=== PATIENT | female | born 1945 | race Asian ===

== ENCOUNTER 2017-03-18 13:32 | Outpatient (CLI) | payer MEDICARE, OTHER ==
--- NOTE | 2017-03-21 13:04 | Mammography Report ---
DIGITAL SCREENING MAMMOGRAM: 03/18/2017 CLINICAL INDICATION: A 71-year-old for screening. COMPARISON: 02/2016, 01/2015, 10/2013 TECHNIQUE: Routine CC and MLO projections were obtained of the breasts. FINDINGS: Scattered fibroglandular tissue is present within the breasts. There are no dominant nathan s, suspicious microcalcifications, or secondary signs of malignancy. In comparison to the previous st udies, there are no significant changes. ASSESSMENT: NO MAMMOGRAPHIC EVIDENCE OF MALIGNANCY. NO SIGNIFICANT INTERVAL CHANGES. RECOMMENDATION: Screening mammography is recommended annually. BIRADS category 1 - negative. STANDARD QUALIFYING STATEMENTS 1. This examination was reviewed with the aid of Computed-Aided Detection (CAD). 2. A negative or benign imaging report should not delay biopsy if clinically suspicious findings are present. Consider surgical consultation if warranted. More than 5% of cancers are not identified by i maging. 3. Dense breasts may obscure an underlying neoplasm. JOB #: [id number] EXT JOB #:[id number]
== END 2017-03-18 13:33 | disposition home or self-care (01) ==
LOC: DI.N 13:32
PROVIDERS: ATTEND Family Medicine
DX: Z12.31 Encounter for screening mammogram for malignant neoplasm of breast (principal)
CPT/HCPCS: 77067

== ENCOUNTER 2017-05-13 10:49 | Outpatient (CLI) | payer MEDICARE, OTHER ==
--- NOTE | 2017-05-13 13:25 | DEXA Report ---
DEXA SCAN: 05/13/2017 CLINICAL INDICATION: Osteoporosis. TECHNIQUE: Dual energy x-ray absorptiometry (DXA) was performed on a [employer] system. Regions measured are the AP spine, femoral neck, and, if needed, forearm. COMPARISON: None. In accordance with the International Society for Clinical Densitometry (ISCD) guidelines, data from previous exams may be reanalyzed using current recommendations and techniques. This is done to allow a more accurate basis for comparison with the current study. FINDINGS: The data for the lumbar spine is as follows: REGION BMD (g/cm/cm) T-SCORE Z-SCORE L1 0.729 -3.3 -1.4 L2 0.745 -3.8 -1.9 L3 0.724 -4.0 -2.0 L4 0.804 -3.3 -1.4 TOTAL 0.754 -3.6 -1.6 NOTE: All evaluable vertebrae are used for classification. The data for the hip is as follows: REGION BMD (g/cm/cm) T-SCORE Z-SCORE Neck 0.697 -2.5 -0.6 TOTAL 0.758 -2.0 -0.3 NOTE: The femoral neck or total proximal femur, whichever is lowest, is used for classification. IMPRESSION: THE WHO CLASSIFICATION BASED ON THE INTERNATIONAL REFERENCE STANDARD IS OSTEOPOROSIS. THE FRACTURE RISK IS HIGH. RECOMMENDATION: Patients with diagnosis of osteoporosis or osteopenia should have regular bone mineral density assessment. For those eligible for Medicare, routine testing is allowed once every 2 years. Testing frequency can be increased for patients who have rapidly progressing disease or for those who are receiving medical therapy to restore bone mass. COMMENT: World Health Organization (WHO) definitions for osteoporosis and osteopenia: NORMAL BMD: T-score at -1.0 or higher, fracture risk is low. OSTEOPENIA BMD: T-score between -1.0 and -2.5, fracture risk is increased. OSTEOPOROSIS BMD: T-score at -2.5 or lower, fracture risk high. National Osteoporosis Foundation recommends: 1. Obtain adequate dietary calcium (at least 1200 mg per day) and vitamin D (400 -800 international units per day). 2. Participate, as appropriate, in regular weightbearing and muscle- strengthening exercise. 3. Avoid tobacco use and reduce alcohol and caffeine intake. 4. For more detailed information see the website at www.NOF.org. MTDD
== END 2017-05-13 10:50 | disposition home or self-care (01) ==
LOC: DI 10:49
PROVIDERS: ATTEND Family Medicine
DX: M81.0 Age-related osteoporosis without current pathological fracture (principal)
CPT/HCPCS: 77080

== ENCOUNTER 2018-03-13 14:47 | Outpatient (CLI) | payer MEDICARE, OTHER ==
--- NOTE | 2018-03-15 11:08 | Mammography Report ---
DIGITAL SCREENING MAMMOGRAM: 03/13/2018 TECHNIQUE: Bilateral digital CC and MLO projections. COMPARISON: 03/18/2017, 03/01/2016, 02/05/2015, 11/02/2013 and 12/16/2011. FINDINGS: There are scattered fibroglandular densities. There is no dominant mass, architectural distortion, skin thickening, suspicious microcalcifications or interval change. IMPRESSION: NEGATIVE. BI-RADS CATEGORY 1 - NEGATIVE. SUGGEST RETURN TO ROUTINE SCREENING IN 12 MONTHS. STANDARD QUALIFYING STATEMENTS: 1. This examination was reviewed with the aid of Computer-Aided Detection (CAD). 2. A negative or benign imaging report should not delay biopsy if clinically suspicious findings are present. Consider surgical consultation if warranted. More than 5% of cancers are not identified by imaging. 3. Dense breasts may obscure an underlying neoplasm. TD: 03/15/2018 10:53
== END 2018-03-13 14:48 | disposition home or self-care (01) ==
LOC: DI.N 14:47
PROVIDERS: ATTEND Family Medicine
DX: Z12.31 Encounter for screening mammogram for malignant neoplasm of breast (principal)
CPT/HCPCS: 77067

== ENCOUNTER 2018-04-21 11:13 | Outpatient (CLI) | payer MEDICARE, OTHER ==
[2018-04-21 19:12] LABS: BASOPHILS # (AUTO) 0.1 10^3/uL (0.0-0.1); BASOPHILS % (AUTO) 0.8 %; BILIRUBIN,URINE NEGATIVE (NEGATIVE); EOSINOPHILS # (AUTO) 0.1 10^3/uL (0.0-0.7); EOSINOPHILS % (AUTO) 1.5 %; GLUCOSE, URINE (UA) 100 mg/dL (NEGATIVE); HGB - HEMOGLOBIN 13.4 g/dL (12.0-16.0); KETONES,URINE (UA) NEGATIVE (NEGATIVE); LEUKOCYTE ESTERASE, URINE NEGATIVE (NEGATIVE); LYMPHOCYTES # (AUTO) 1.5 10^3/uL (1.5-3.5); LYMPHOCYTES % (AUTO) 24.9 %; MEAN CORPUSCULAR HEMOGLOBIN 29.6 pg (27.0-31.0); MEAN CORPUSCULAR HGB CONC 32.5 g/dL (32.0-36.0); MEAN CORPUSCULAR VOLUME 91.1 fL (81.0-99.0); MEAN PLATELET VOLUME 8.1 fL (7.9-10.8); MONOCYTES # (AUTO) 0.5 10^3/uL (0.0-1.0); MONOCYTES % (AUTO) 7.4 %; NEUTROPHILS % (AUTO) 65.4 %; NITRITE,URINE NEGATIVE (NEGATIVE); OCCULT BLOOD,URINE TRACE-LYSE (NEGATIVE); PLT - PLATELET COUNT 238 10^3/uL (130-450); PROTEIN,URINE NEGATIVE (NEGATIVE); RED BLOOD COUNT 4.52 10^6/uL (4.20-5.40); RED CELL DISTRIBUTION WIDTH 13.4 % (12.0-15.0); UROBILINOGEN,URINE 0.2 (NORMAL) E.U./dL (NORMAL); WHITE BLOOD COUNT 6.1 x10^3/uL (4.8-10.8)
[2018-04-21 19:16] LABS: CLARITY,URINE CLEAR (CLEAR)
[2018-04-21 19:42] LABS: ALBUMIN 3.7 g/dL (3.2-5.5); ALBUMIN/GLOBULIN RATIO 1.1 (1.0-2.2); ALKALINE PHOSPHATASE 59 IU/L (42-121); ALT ALANINE AMINOTRANSFERASE 17 IU/L (10-60); AST ASPARTATE AMINOTRANSFERASE 19 IU/L (10-42); BILIRUBIN,TOTAL 0.7 mg/dL (0.2-1.0); BUN - BLOOD UREA NITROGEN 13 mg/dL (6-20); CALCIUM 8.9 mg/dL (8.5-10.3); CARBON DIOXIDE - CO2 26 mmol/L (21-32); CHLORIDE 102 mmol/L (101-111); CHOL/HDL RATIO 2.7 (<4.4); CHOLESTEROL 246 mg/dL; CREATININE 0.4 mg/dL (0.4-1.0); GFR - MDRD 157 (>89); GLUCOSE 160 mg/dL (70-100); HDL CHOLESTEROL 91 mg/dL; LDL CHOLESTEROL,CALCULATED 131 mg/dL; LDL/HDL RATIO 1.4 (<4.4); SODIUM 135 mmol/L (135-145); TOTAL PROTEIN 7.2 g/dL (6.7-8.2); VLDL CHOLESTEROL 24 mg/dL
[2018-04-21 20:08] LABS: RBC,URINE None Seen /HPF (0-5)
[2018-04-21 20:09] LABS: BACTERIA,URINE None Seen /HPF (None Seen); SQUAMOUS EPITHELIAL CELL,UR NONE SEEN (<= Few)
[2018-04-21 20:10] LABS: CRYSTALS,URINE 11-25 Ca Oxalate /LPF
== END 2018-04-21 11:14 | disposition home or self-care (01) ==
LOC: LAB.WCP 11:13
PROVIDERS: ATTEND Family Medicine
DX: I10 Essential (primary) hypertension (principal); R35.0 Frequency of micturition
CPT/HCPCS: 36415; 80053; 80061; 81001; 83721; 85025; 87086

== ENCOUNTER 2018-06-06 11:02 | Outpatient (CLI) | payer MEDICARE, OTHER | END 2018-06-06 11:03 | disposition home or self-care (01) | LOC: RT 11:02 | PROVIDERS: ATTEND Internal Medicine Gastroenterology | DX: I10 Essential (primary) hypertension (principal) | CPT/HCPCS: 93005 ==

== ENCOUNTER 2018-06-29 09:39 | Day surgery (SDC) | payer MEDICARE ==
[~2018-06-29 09:39] MED LIST: LACTATED RINGERS 1,000 ML IV ONE
[2018-06-29] MEDS ORDERED: MIDAZOLAM 2 MG/2 ML VIAL IVP ONE (10:52)
[2018-06-29] MEDS ORDERED: fentaNYL 100 MCG/2 ML VIAL IVP ONE (10:52)
[2018-06-29 11:45] VITALS: BP 124/56
== END 2018-06-29 09:40 | disposition home or self-care (01) ==
LOC: SDS 09:39
PROVIDERS: ATTEND Internal Medicine Gastroenterology
PROC: 0DBM8ZZ Excision of Descending Colon, Via Natural or Artificial Opening Endoscopic (ICD-10-PCS; principal; 2018-06-29 10:30)
DX: Z12.11 Encounter for screening for malignant neoplasm of colon (principal); D12.4 Benign neoplasm of descending colon; I10 Essential (primary) hypertension; R35.0 Frequency of micturition
CPT/HCPCS: 45380; J7120

== ENCOUNTER 2019-08-30 09:00 | Outpatient (CLI) | payer MEDICARE ==
[2019-08-30 18:42] LABS: BASOPHILS # (AUTO) 0.1 10^3/uL (0.0-0.1); BASOPHILS % (AUTO) 0.8 %; EOSINOPHILS # (AUTO) 0.2 10^3/uL (0.0-0.7); EOSINOPHILS % (AUTO) 2.3 %; HGB - HEMOGLOBIN 13.7 g/dL (12.0-16.0); LYMPHOCYTES # (AUTO) 2.4 10^3/uL (1.5-3.5); LYMPHOCYTES % (AUTO) 30.7 %; MEAN CORPUSCULAR HGB CONC 31.9 g/dL (32.0-36.0); MEAN CORPUSCULAR VOLUME 91.1 fL (81.0-99.0); MONOCYTES # (AUTO) 0.6 10^3/uL (0.0-1.0); MONOCYTES % (AUTO) 7.5 %; NEUTROPHILS # (AUTO) 4.6 10^3/uL (1.5-6.6); NEUTROPHILS % (AUTO) 58.6 %; PLT - PLATELET COUNT 267 10^3/uL (130-450); RED BLOOD COUNT 4.72 10^6/uL (4.20-5.40); RED CELL DISTRIBUTION WIDTH 12.6 % (12.0-15.0); WHITE BLOOD COUNT 7.8 x10^3/uL (4.8-10.8)
[2019-08-30 18:58] LABS: ALBUMIN/GLOBULIN RATIO 1.1 (1.0-2.2); ALKALINE PHOSPHATASE 71 IU/L (42-121); ALT ALANINE AMINOTRANSFERASE 19 IU/L (10-60); AST ASPARTATE AMINOTRANSFERASE 19 IU/L (10-42); BILIRUBIN,TOTAL 0.7 mg/dL (0.2-1.0); BUN - BLOOD UREA NITROGEN 16 mg/dL (6-20); CALCIUM 9.3 mg/dL (8.5-10.3); CARBON DIOXIDE - CO2 28 mmol/L (21-32); CHLORIDE 102 mmol/L (101-111); CHOL/HDL RATIO 3.1 (<4.4); CHOLESTEROL 290 mg/dL; CREATININE 0.5 mg/dL (0.4-1.0); GFR - MDRD 121 (>89); GLUCOSE 92 mg/dL (70-100); HDL CHOLESTEROL 94 mg/dL; LDL CHOLESTEROL,CALCULATED 169 mg/dL; LDL/HDL RATIO 1.8 (<4.4); SODIUM 138 mmol/L (135-145); TOTAL PROTEIN 7.6 g/dL (6.7-8.2); VLDL CHOLESTEROL 27 mg/dL
== END 2019-08-30 23:59 | disposition home or self-care (01) ==
LOC: LAB.WCP 09:00
PROVIDERS: ATTEND Family Medicine
DX: I10 Essential (primary) hypertension (principal); R35.1 Nocturia; G47.00 Insomnia, unspecified; R35.0 Frequency of micturition
CPT/HCPCS: 36415; 80053; 80061; 83721; 84443; 85025

== ENCOUNTER 2019-09-14 15:53 | Outpatient (CLI) | payer MEDICARE ==
--- NOTE | 2019-09-17 10:50 | Mammography Report ---
Reason: SCREENING MAMMO Procedure Date: 09/14/2019 Accession Number: [id number] / [id number] Procedure: MGN - Screening Mammo Dig Bilat CPT Code: Final Report FULL RESULT: EXAM: Screening Mammo Dig Bilat DATE: 09/14/2019 4:11 PM CLINICAL HISTORY: Screening encounter. TECHNIQUE: (B) - Bilateral CC and MLO views were obtained. COMPARISON: 03/13/2018 through 12/16/2011. PARENCHYMAL PATTERN: (A) - The breast(s) demonstrate(s) scattered fibroglandular densities. FINDINGS: There are typically benign vascular calcifications. There are no suspicious masses, calcifications, or areas of distortion. IMPRESSION: Benign findings. BI-RADS category 2. RECOMMENDATION: (ANNUAL) - Recommend routine annual screening mammography. BI-RADS CATEGORY: (2) - Benign Findings. STANDARD QUALIFYING STATEMENTS: 1. This examination was not reviewed with the aid of Computer-Aided Detection (CAD). 2. A negative or benign imaging report should not preclude biopsy if clinically suspicious findings are present. 3. Dense breasts may obscure an underlying neoplasm. 4. This examination was reviewed without the aid of 3D breast imaging (tomosynthesis).
== END 2019-09-14 15:54 | disposition home or self-care (01) ==
LOC: DI.N 15:53
DX: Z12.31 Encounter for screening mammogram for malignant neoplasm of breast (principal)
CPT/HCPCS: 77067

== ENCOUNTER 2021-07-05 11:37 | Emergency (ER) | payer MEDICARE ==
[2021-07-05 11:47] VITALS: BP 182/73
--- NOTE | 2021-07-05 12:39 | ED Physician Documentation ---
PD HPI FEMALE - Stated complaint Stated Complaint: FEMALE - Chief complaint Chief Complaint: UTI - History obtained from History obtained from: Patient (via [employer] accounting intern [id number]) - Additional information Additional information: She has had light red painless hematuria starting early this morning not associated with frequency or urgency or flank pain or pelvic pain. She does not get frequent UTIs. No fevers. No beet ingestion. 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 - Present Medications Home Medications: Ambulatory Orders Medication Instructions Recorded Confirmed Losartan Potassium 25 mg PO DAILY 06/29/18 06/29/18 - Allergies Allergies/Adverse Reactions: Allergies Allergy/AdvReac Type Severity Reaction Status Date / Time No Known Drug Allergies Allergy Verified 07/05/21 11:47 - Social History Does the pt smoke?: No Smoking Status: Never smoker Does the pt drink ETOH?: No Does the pt have substance abuse?: No - POLST Patient has POLST: No PD ED PE NORMAL - Vitals Vital signs reviewed: Yes - General General: Alert and oriented X 3, No acute distress - Abdomen Abdomen: Soft, Non tender - Female Female : Other (exam done with Rosmery GREENFIELD present and chaperoning. There was vaginal bleeding with slight ooze from the cervical os. There was a tissue mass (2cm round) in the vault which was sent for pathology. There was no tenderness .) - Back Back: No CVA TTP - Derm Derm: Normal color, Warm and dry Results - Vitals Vitals: Vital Signs - 24 hr 07/05/21 11:45 Temperature 35.9 C L Heart Rate 81 Respiratory 14 Rate Blood Pressure 182/73 H O2 Saturation 95 Oxygen O2 Source Room air - Labs Labs: Laboratory Tests 07/05/21 07/05/21 07/05/21 12:02 13:40 13:40 WBC 9.6 RBC 4.51 Hgb 13.4 Hct 40.6 MCV 90.0 MCH 29.7 MCHC 33.0 RDW 12.6 Plt Count 268 MPV 9.2 Neut # (Auto) 7.0 H Lymph # (Auto) 1.7 Kendall # (Auto) 0.8 Eos # (Auto) 0.1 Baso # (Auto) 0.0 Absolute Nucleated RBC 0.00 Nucleated RBC % 0.0 Sodium 136 Potassium 3.7 Chloride 102 Carbon Dioxide 25 Anion Gap 9.0 BUN 12 Creatinine 0.5 Estimated GFR (MDRD) 121 Glucose 188 H Calcium 9.0 Total Bilirubin 0.6 AST 19 ALT 21 Alkaline Phosphatase 59 Total Protein 7.5 Albumin 3.9 Globulin 3.6 Albumin/Globulin Ratio 1.1 Lipase 33 Urine Color YELLOW Urine Clarity HAZY Urine pH 6.5 Ur Specific [place] 1.015 Urine Protein NEGATIVE Urine Glucose (UA) NEGATIVE Urine Ketones NEGATIVE Urine Occult Blood LARGE H Urine Nitrite NEGATIVE Urine Bilirubin NEGATIVE Urine Urobilinogen 0.2 (NORMAL) Ur Leukocyte Esterase NEGATIVE Urine RBC TNTC H Urine WBC 0-3 Ur Squamous Epith Cells NONE SEEN Urine Bacteria Rare Ur Microscopic Review INDICATED Urine Culture Comments NOT INDICATED - Rads (name of study) CT abdomen pelvis without contrast, no obstructive uropathy or stone. Ther e is a 3.1 cm left adrenal nodule requiring follow-up. Radiology: EMP read contemporaneously PD MEDICAL DECISION MAKING - ED course ED course: 75-year-old woman initially arrives with a chief complaint of hematuria starting this morning, however it was a lengthy process with the accounting intern, the patient was specifically worried about her uterus. We discussed at length again with the accounting intern the difference between hematuria and vaginal bleeding and the patient kind of changed her chief complaint and stated it was like a period. Pelvic exam did demonstrate oozing from the cervical os with a tissue mass in the falx that was sent for pathology. Case was discussed by phone with Dr. Conti, her FRONT END ALIGNMENT SPECIALIST consultants who will see her in follow-up and requests a pelvic ultrasound today. Departure - Departure Disposition: 01 Home, Self Care Clinical Impression: Vaginal bleeding, abnormal, Vaginal mass, Adrenal mass 1 cm to 4 cm in diameter Condition: Good Follow-Up: Shaina Conti MD [Provider Admit Priv/Credential] - Comments: You are seen today for vaginal bleeding, there was a mass that came out of your vagina and combined with the ultrasound results it is likely due to an endometrial polyp. It is very important to follow-up with a oil burner journeyman for evaluation of this. The one listed on this form is aware of your case as I spoke with her by phone today. Call her office tomorrow. I did send the mass that came out of your vagina for pathology evaluation. On a separate, unrelated issue, on your CAT scan today You were noted to have an adrenal mass. Talk with your primary care physician about ordering a liver protocol MRI for this..
[2021-07-05 12:44] LABS: BILIRUBIN,URINE NEGATIVE (NEGATIVE); GLUCOSE, URINE (UA) NEGATIVE (NEGATIVE); KETONES,URINE (UA) NEGATIVE (NEGATIVE); LEUKOCYTE ESTERASE, URINE NEGATIVE (NEGATIVE); NITRITE,URINE NEGATIVE (NEGATIVE); OCCULT BLOOD,URINE LARGE (NEGATIVE); PH,URINE 6.5 PH (5.0-7.5); PROTEIN,URINE NEGATIVE (NEGATIVE); UROBILINOGEN,URINE 0.2 (NORMAL) E.U./dL (NORMAL)
[2021-07-05 12:45] LABS: CLARITY,URINE HAZY (CLEAR)
[2021-07-05 12:52] LABS: WBC,URINE 0-3 /HPF (0-5)
[2021-07-05 12:53] LABS: BACTERIA,URINE Rare /HPF (None Seen); RBC,URINE TNTC /HPF (0-5); SQUAMOUS EPITHELIAL CELL,UR NONE SEEN (<= Few)
--- NOTE | 2021-07-05 13:23 | CT Report ---
PROCEDURE: Abdomen/Pelvis WO INDICATIONS: hematuria TECHNIQUE: Noncontrast 5 mm thick sections acquired from the diaphragms to the symphysis. 5 mm coronal and sagi ttal reformats were then performed. For radiation dose reduction, the following was used: automated exposure control, adjustment of mA and/or kV according to patient size. COMPARISON: None. FINDINGS: Image quality: Excellent. ABDOMEN: Lung bases: Lung bases are clear. Heart size is normal. Solid organs: Liver and spleen are normal in size. Gallbladder demonstrates a lamellated gallstone within its lumen. Pancreas is normal in contours. There is a left adrenal nodule seen that measures 3.1 cm and demonstrates an internal density of 15 Hounsfield units. No right adrenal nodules. Kidne ys are normal in size, without hydronephrosis or nephrolithiasis. Peritoneum and bowel: Unenhanced bowel loops demonstrate normal wall thickness and caliber. No free fluid or air. Nodes and vessels: No retroperitoneal or mesenteric adenopathy by size criteria. Aorta and inferior vena cava are normal in caliber. Miscellaneous: No ventral hernias. PELVIS: Genitourinary: Bladder wall thickness is normal. Miscellaneous: No inguinal hernias or adenopathy. Bones: No suspicious bony lesions. No vertebral body compression fractures. There is mild to moder ate dextroconvex scoliotic curvature. Transitional lumbar anatomy is seen, with partial sacralization of the L5 level. Focal L4-5 degenerative change is seen. IMPRESSION: No findings of stones or obstructive uropathy can be seen. In this patient with a presenting history of hematuria, please consider a follow-up dedicated hematur ia protocol CT (including with delayed postcontrast images) for further evaluation for masses, ureter al abnormalities, and bladder abnormalities. There is a 3.1 cm left adrenal nodule, which cannot be defined as a lipid rich adrenal adenoma on the se images. When clinically appropriate, please consider a dedicated liver protocol MRI for further ev aluation. Incidental note is made of: Dextroconvex scoliotic curvature Focal L4-5 degenerative change Transitional lumbar anatomy, with a partially sacralized L5 level. Reviewed by: Delmer Smith MD on 07/05/2021 12:21 PM LITZY Approved by: Delmer Smith MD on 07/05/2021 12:21 PM MAELZBIETA Station ID: [id number]
[2021-07-05 13:43] LABS: BASOPHILS % (AUTO) 0.4 %; EOSINOPHILS # (AUTO) 0.1 10^3/uL (0.0-0.7); EOSINOPHILS % (AUTO) 0.6 %; HCT - HEMATOCRIT 40.6 % (37.0-47.0); HGB - HEMOGLOBIN 13.4 g/dL (12.0-16.0); LYMPHOCYTES # (AUTO) 1.7 10^3/uL (1.5-3.5); LYMPHOCYTES % (AUTO) 17.7 %; MEAN CORPUSCULAR HEMOGLOBIN 29.7 pg (27.0-31.0); MEAN PLATELET VOLUME 9.2 fL (7.9-10.8); MONOCYTES # (AUTO) 0.8 10^3/uL (0.0-1.0); MONOCYTES % (AUTO) 7.8 %; NEUTROPHILS % (AUTO) 73.1 %; PLT - PLATELET COUNT 268 10^3/uL (130-450); RED BLOOD COUNT 4.51 10^6/uL (4.20-5.40); RED CELL DISTRIBUTION WIDTH 12.6 % (12.0-15.0); WHITE BLOOD COUNT 9.6 x10^3/uL (4.8-10.8)
[2021-07-05 13:56] LABS: ALBUMIN 3.9 g/dL (3.2-5.5); ALBUMIN/GLOBULIN RATIO 1.1 (1.0-2.2); BILIRUBIN,TOTAL 0.6 mg/dL (0.2-1.0); CREATININE 0.5 mg/dL (0.4-1.0); POTASSIUM 3.7 mmol/L (3.5-5.0); TOTAL PROTEIN 7.5 g/dL (6.7-8.2)
--- NOTE | 2021-07-05 15:42 | Ultrasound Report ---
PROCEDURE: Pelvic w/Transvag+Doppler Comp INDICATIONS: vaginal bleeding postmenopausal TECHNIQUE: Real-time scanning was performed of the pelvic organs, with image documentation. Additional endovagi nal scanning was necessary due to incomplete visualization of the adnexal and endometrial structures by transabdominal scanning. COMPARISON: Correlation is made with the accompanying CT study, 07/05/2021 FINDINGS: No pathologic free abdominal or pelvic fluid. Uterus: Uterus is normal in size at 3.9 x 2.6 x 4.2 cm. The endometrium measures 4 mm in combined t hickness. There is fluid seen along the endometrial stripe, with a possible polyp that measures 11 x 2 x 4 mm. No abnormal vascularity can be seen along the endometrial stripe or involving the polyp. N abothian cysts are incidentally noted. Within the mid anterior uterus, there is a 3 mm intramural fib roid. Ovaries: The right ovary is not seen. The left ovary is unremarkable and measures 1.4 x 0.8 x 1.7 cm . No adnexal masses are seen on either side. IMPRESSION: The endometrial stripe is not thickened in this patient with a presenting history of postmenopausal b leeding. However, fluid can be seen along the endometrial stripe. There is also an apparent endometrial polyp. When clinically appropriate, a gynecology consultation is recommended. Normal-appearing left ovary. Right ovary not visualized. Note: Concordant preliminary findings given by the dumper bailer operator upon the completion of the examination to Dr. Figueredo at 3:25 PM on 07/05/2021. Reviewed by: Delmer Smith MD on 07/05/2021 2:41 PM LITZY Approved by: Delmer Smith MD on 07/05/2021 2:41 PM LITZY Station ID: [id number]
== END 2021-07-05 15:34 | disposition home or self-care (01) ==
LOC: ED 11:37
DX: N93.9 Abnormal uterine and vaginal bleeding, unspecified (principal); N89.8 Other specified noninflammatory disorders of vagina; E27.8 Other specified disorders of adrenal gland
CPT/HCPCS: 36415; 80053; 81001; 81003; 83690; 85025; 87086; 93975; 99283; 99284

== ENCOUNTER 2021-07-14 07:00 | Outpatient (CLI) | payer MEDICARE ==
[2021-07-14 11:13] LABS: ALBUMIN/GLOBULIN RATIO 1.1 (1.0-2.2); BILIRUBIN,TOTAL 0.9 mg/dL (0.2-1.0); CALCIUM 9.3 mg/dL (8.5-10.3); CREATININE 0.4 mg/dL (0.4-1.0); POTASSIUM 3.9 mmol/L (3.5-5.0); TOTAL PROTEIN 7.8 g/dL (6.7-8.2)
== END 2021-07-14 23:59 | disposition home or self-care (01) ==
LOC: LAB 07:00
PROVIDERS: ATTEND Obstetrics & Gynecology
DX: Z01.812 Encounter for preprocedural laboratory examination (principal)
CPT/HCPCS: 36415; 80053

== ENCOUNTER 2021-07-22 16:44 | Outpatient (CLI) | payer MEDICARE ==
[2021-07-22 17:11] LABS: ALBUMIN 3.9 g/dL (3.2-5.5); ALBUMIN/GLOBULIN RATIO 1.1 (1.0-2.2); BILIRUBIN,TOTAL 0.5 mg/dL (0.2-1.0); CALCIUM 9.3 mg/dL (8.5-10.3); CREATININE 0.6 mg/dL (0.4-1.0); POTASSIUM 3.8 mmol/L (3.5-5.0); TOTAL PROTEIN 7.6 g/dL (6.7-8.2)
[2021-07-22 20:01] LABS: ESTIMATED AVERAGE GLUCOSE 128 mg/dL (70-100); HEMOGLOBIN A1c% 6.1 % (4.27-6.07)
== END 2021-07-22 16:45 | disposition home or self-care (01) ==
LOC: LAB 16:44
PROVIDERS: ATTEND Obstetrics & Gynecology
DX: Z01.812 Encounter for preprocedural laboratory examination (principal); Z13.1 Encounter for screening for diabetes mellitus
CPT/HCPCS: 36415; 80053; 83036

== ENCOUNTER 2021-07-27 08:05 | Outpatient (CLI) | payer MEDICARE ==
--- NOTE | 2021-07-27 09:40 | Ultrasound Report ---
PROCEDURE: Pelvic w/Transvaginal INDICATIONS: POSTMENOPAUSAL BLEEDING TECHNIQUE: Real-time scanning was performed of the pelvic organs, with image documentation. Additional endovagi nal scanning was necessary due to incomplete visualization of the adnexal and endometrial structures by transabdominal scanning. COMPARISON: July 05, 2021 TECHNIQUE: Transabdominal and endovaginal sonographic evaluation of the pelvis was performed. FINDINGS: UTERUS: Anteverted with heterogeneous attenuation. Uterus measures 4.6 x 2.6 x 3.6 cm. The edematous stripe measures 3.6 mm. The previously demonstrated endometrial polyp is not well seen on the current examination. RIGHT OVARY: 1.4 x 0.9 x 0.9 cm. Color-flow projects over the ovarian tissue. LEFT OVARY: 1.6 x 1.1 x 1 cm. Color-flow projects over the ovarian tissue. OTHER: No significant fluid in the cul-de-sac. IMPRESSION: 1.No significant abnormality. Reviewed by: Jose Daniel Levine MD on 07/27/2021 9:39 AM PDT Approved by: Jose Daniel Levine MD on 07/27/2021 9:39 AM PDT Station ID: [id number]
== END 2021-07-27 08:06 | disposition home or self-care (01) ==
LOC: DI 08:05
PROVIDERS: ATTEND Obstetrics & Gynecology
DX: N95.0 Postmenopausal bleeding (principal)

== ENCOUNTER 2022-12-07 11:04 | Outpatient (CLI) | payer MEDICARE ==
[2022-12-07 15:06] LABS: BASOPHILS # (AUTO) 0.1 10^3/uL (0.0-0.1); BASOPHILS % (AUTO) 0.6 %; EOSINOPHILS # (AUTO) 0.2 10^3/uL (0.0-0.7); HCT - HEMATOCRIT 43.5 % (37.0-47.0); HGB - HEMOGLOBIN 13.8 g/dL (12.0-16.0); LYMPHOCYTES # (AUTO) 2.4 10^3/uL (1.5-3.5); LYMPHOCYTES % (AUTO) 29.5 %; MEAN CORPUSCULAR HEMOGLOBIN 28.9 pg (27.0-31.0); MEAN CORPUSCULAR HGB CONC 31.7 g/dL (32.0-36.0); MEAN CORPUSCULAR VOLUME 91.2 fL (81.0-99.0); MEAN PLATELET VOLUME 10.1 fL (7.9-10.8); MONOCYTES # (AUTO) 0.6 10^3/uL (0.0-1.0); MONOCYTES % (AUTO) 6.7 %; PLT - PLATELET COUNT 279 10^3/uL (130-450); RED BLOOD COUNT 4.77 10^6/uL (4.20-5.40); RED CELL DISTRIBUTION WIDTH 13.2 % (12.0-15.0); WHITE BLOOD COUNT 8.2 x10^3/uL (4.8-10.8)
[2022-12-07 15:49] LABS: ALBUMIN 3.7 g/dL (3.2-5.5); ALBUMIN/GLOBULIN RATIO 0.9 (1.0-2.2); ALKALINE PHOSPHATASE 63 IU/L (42-121); ALT ALANINE AMINOTRANSFERASE 21 IU/L (10-60); AST ASPARTATE AMINOTRANSFERASE 17 IU/L (10-42); BILIRUBIN,TOTAL 0.7 mg/dL (0.2-1.0); BUN - BLOOD UREA NITROGEN 13 mg/dL (6-20); CALCIUM 9.3 mg/dL (8.5-10.3); CARBON DIOXIDE - CO2 28 mmol/L (21-32); CHLORIDE 102 mmol/L (101-111); CHOL/HDL RATIO 2.5 (<4.4); CHOLESTEROL 248 mg/dL; CREATININE 0.5 mg/dL (0.4-1.0); GFR - MDRD 120 (>89); GLUCOSE 105 mg/dL (70-100); HDL CHOLESTEROL 98 mg/dL; LDL CHOLESTEROL,CALCULATED 130 mg/dL; LDL/HDL RATIO 1.3 (<4.4); POTASSIUM 4.5 mmol/L (3.5-5.0); SODIUM 137 mmol/L (135-145); TOTAL PROTEIN 7.8 g/dL (6.7-8.2); TRIGLYCERIDES 101 mg/dL; VLDL CHOLESTEROL 20 mg/dL
[2022-12-07 15:54] LABS: THYROID STIMULATING HORMONE 0.62 uIU/mL (0.34-5.60)
[2022-12-07 20:39] LABS: ESTIMATED AVERAGE GLUCOSE 131 mg/dL (70-100); HEMOGLOBIN A1c% 6.2 % (4.27-6.07)
== END 2022-12-07 11:05 | disposition home or self-care (01) ==
LOC: LAB.S 11:04
PROVIDERS: ATTEND Emergency Medicine
DX: I10 Essential (primary) hypertension (principal); E78.5 Hyperlipidemia, unspecified
CPT/HCPCS: 36415; 80053; 80061; 83036; 83721; 84443; 85025